=== PATIENT | female | born 1955 | race Caucasian/White ===

== ENCOUNTER 2022-07-06 15:44 | Emergency (ER) | payer MEDICARE, SELFPAY ==
--- NOTE | ~2022-07-06 | CT_ITS ---
EXAMINATION: CT CERVICAL SPINE WITHOUT CONTRAST CLINICAL INFORMATION: Neck pain status post fall. COMPARISON: None available. TECHNIQUE: Multiple axial images of the cervical spine were obtained without the images of intravenous contrast. Coronal and sagittal reformatted images were obtained. This CT examination was performed using dose optimization techniques as appropriate, variously including the following: *Automated exposure control *Adjustment of mA and/or kV according to patient size (this includes techniques or standardized protocols for targeted exams where dose is matched to indication/reason for exam; i.e. extremities or head) *Use of iterative reconstruction technique DLP: 300.01 mGy-cm FINDINGS: There is normal cervical lordosis with normal spinal alignment. Moderate to severe degenerative disc disease is seen from C4-5 and C5-6 with disc space narrowing, sclerosis and adjacent endplates, marginal osteophyte formation and minimal bilateral neural foraminal narrowing. The odontoid process is intact. The facet joints are unremarkable. The spinous processes are intact. The cervical soft tissues are unremarkable. There is no lymphadenopathy. The thyroid gland is unremarkable. The visualized lung apices are unremarkable. CT/CT cervical spine wo IV con IMPRESSION: Multilevel degenerative changes without acute abnormality.
--- NOTE | ~2022-07-06 | CT_ITS ---
EXAMINATION: CT ANGIOGRAM OF THE CHEST WITH AND WITHOUT CONTRAST (CT PULMONARY ANGIOGRAM FOR PE) CT ABDOMEN AND PELVIS WITH CONTRAST CLINICAL INFORMATION: Reason for Exam fall, chest trauma, sob, palpitations COMPARISON: None TECHNIQUE: Prior to contrast administration, noncontrast localization images were obtained. Subsequently, multidetector volumetric imaging was performed from the thoracic inlet to the pubic symphysis following the administration of 85 mL Omnipaque 350 intravenous contrast. This was followed by multidetector acquisition of the abdomen and pelvis. No contrast reaction reported Sagittal, coronal, and MIP oblique sagittal reformatted images were obtained on the CT workstation, uploaded to PACS, and reviewed. This CT examination was performed using dose optimization techniques as appropriate, variously including the following: *Automated exposure control *Adjustment of mA and/or kV according to patient size (this includes techniques or standardized protocols for targeted exams where dose is matched to indication/reason for exam; i.e. extremities or head) *Use of iterative reconstruction technique Total exam dose-length product 620 mGy-cm FINDINGS: QUALITY OF STUDY/CONTRAST BOLUS: Satisfactory. PULMONARY ARTERIES: No central or segmental pulmonary emboli. THORACIC AORTA: No aneurysm or dissection. LUNG: No focal consolidation, nodules or masses. Mild bronchial wall thickening present. PLEURA: No pleural effusion or pneumothorax. MEDIASTINUM: Normal heart size. No pericardial effusion. No hilar or mediastinal lymphadenopathy. No evidence of septal bowing or right heart strain. CHEST WALL/AXILLA: No axillary or internal mammary lymphadenopathy. LIVER, GALLBLADDER, AND BILIARY TREE: The liver is normal in size, shape, and attenuation. No focal hepatic lesion or biliary ductal dilatation is present. The gallbladder is unremarkable with no evidence of radiopaque gallstones, gallbladder wall thickening, or obvious pericholecystic inflammatory changes. PANCREAS: Unremarkable. SPLEEN: Unremarkable. ADRENAL GLANDS: Unremarkable. KIDNEYS AND URETERS: The kidneys are normal in size, shape, and attenuation. No hydronephrosis, hydroureter, or calculi seen. No perinephric stranding. Simple bilateral renal cysts. No specific follow-up recommended. BLADDER: Unremarkable. GASTROINTESTINAL TRACT: The stomach is unremarkable. Normal caliber small bowel. No obstruction. Colonic diverticulosis at the sigmoid colon. No diverticulitis. No free air or free fluid. Appendix not seen.. ABDOMINAL WALL: No significant hernia is appreciated. LYMPH NODES: Normal. VASCULAR: Normal caliber aorta with mild atherosclerotic calcification. PELVIC VISCERA: The uterus and adnexa are unremarkable. OSSEOUS STRUCTURES: There is a mild anterior compression deformity of the L2 vertebral body. 10% loss of anterior vertebral body height with fragmented appearance of the anterior superior endplate. Intact ribs. Intact sternum. Intact pelvis. CT/CT abdomen pelvis w IV con IMPRESSION: 1. No pulmonary embolism. 2. No acute traumatic finding of the chest, abdomen, or pelvis. 3. Mild anterior compression deformity of the L2 vertebral body. This may be acute. VTE: negative
--- NOTE | ~2022-07-06 | CT_ITS ---
EXAMINATION: CT HEAD WITHOUT CONTRAST CLINICAL INFORMATION: Status post fall with head strike. COMPARISON: None available. TECHNIQUE: Contiguous axial imaging was performed from the skull base to vertex without intravenous administration of contrast. Coronal and sagittal reformatted images were obtained. This CT examination was performed using dose optimization techniques as appropriate, variously including the following: *Automated exposure control *Adjustment of mA and/or kV according to patient size (this includes techniques or standardized protocols for targeted exams where dose is matched to indication/reason for exam; i.e. extremities or head) *Use of iterative reconstruction technique DLP: 964 mGy-cm FINDINGS: The cortical sulci are normal. The lateral ventricles are symmetrical. The third and fourth ventricles are in their normal midline position. The basilar and prepontine cisterns are unremarkable. There is no acute intra or extracerebral abnormality. There is no mass effect or midline shift. Sections through the bony calvarium are unremarkable. The paranasal sinuses are clear. The bony orbits and orbital contents are unremarkable. CT/CT head/brain wo IV con IMPRESSION: No acute intracranial pathology.
--- NOTE | 2022-07-06 15:53 | ED.CHESTPAIN ---
HPI - Chest Pain General Chief Complaint: General Medical <ISIAH Vela - Last Filed: 07/06/22 16:00> Stated Complaint: chest palpitations <ISIAH Vela Last Filed: 07/06/22 16:00> Time Seen by Provider: 07/06/22 21:31 <ISIAH Vela Last Filed: 07/06/22 16:00> Source: patient <ISIAH Mack Last Filed: 07/06/22 23:52> Limitations: no limitations <ISIAH Mack Last Filed: 07/06/22 23:52> History of Present Illness HPI narrative: 67 year old female with no significant PMH presents to the ED with CC of palpitations with associated painful facial flushing that started a few weeks ago. Patient reports palpitations have awoken her from sleep on several occasions, and painful facial flushing typically precedes these episodes. Episodes typically last several minutes and resolve. Additionally, patient reports she fell down the stairs of her porch this morning, striking her head on the concrete with no LOC. Patient endorses pain all over, but specifically at the back of the head, lower back and right flank. Patient reports pain from fall does not radiate and she is generally sore all over. Patient denies fever, chills, N/V/D, dizziness, AMADOR, SOB, CP, urinary/bowel incontinence or retention, saddle paresthesias or weakness. No history of cardiac conditions or clotting disorders. Patient is not on a blood thinner. <ISIAH Mack Last Filed: 07/06/22 23:52> Related Data Home Medications: Previous Rx's Medication Instructions Recorded ketorolac 10 mg tablet 10 mg PO TID PRN pain 5 days #15 07/06/22 tabs lidocaine 5 % topical patch 1 patch topical DAILY PRN pain #15 07/06/22 ea morphine 15 mg immediate release 15 mg PO Q6H PRN pain 5 days #10 07/06/22 tablet tabs <ISIAH Vela Last Filed: 07/06/22 16:00> Allergies/Adverse Reactions: Allergies Allergy/AdvReac Type Severity Reaction Status Date / Time No Known Allergies Allergy Verified 07/06/22 15:54 <ISIAH Vela Last Filed: 07/06/22 16:00> Review of Systems Review of Systems: Constitutional : No Weight loss, No Fever, No Chills, No Fatigue, No Malaise ENT/Mouth : No sore throat, No Rhinorrhea Eyes: No Eye Pain, No Swelling, No Redness Cardiovascular : No Chest Pain, No SOB, No Dyspnea on Exertion, No Orthopnea, No Edema, + Palpitations Respiratory : No Cough, No Sputum, No Wheezing Gastrointestinal : No Nausea, No Vomiting, No Diarrhea, No Constipation, No abdominal Pain, No Hematochezia, No Melena Genitourinary : No Dysuria, No Urinary Frequency, No Hematuria, Musculoskeletal : + joint pain, No Myalgias, No Joint Swelling Skin : No Skin Lesions, No rash Neuro : No Weakness, No Numbness, No Dizziness, No Headache Psych : No Anxiety/Panic, No Depression All other systems reviewed and are negative <ISIAH Mack Last Filed: 07/06/22 23:52> Yes all other systems are reviewed and are negative <ISIAH Mack - Last Filed: 07/06/22 23:52> [facility] Past Medical History Attestation statement: The following information was validated with the patient. <ISIAH Mack - Last Filed: 07/06/22 23:52> Source: old records reviewed and nursing notes reviewed <ISIAH Mack - Last Filed: 07/06/22 23:52> Social History Social History: Social History Advance Directives: No Advance Directives Information Provided: No <ISIAH Vela Last Filed: 07/06/22 16:00> Physical Exam Vital Signs: Vital Signs: Last Vital Signs Temp 98.3 F 07/06/22 21:17 Pulse 67 07/06/22 21:17 Resp 14 07/06/22 21:17 BP 139/76 07/06/22 21:17 Pulse Ox 96 07/06/22 21:17 O2 Del Method Room Air 07/06/22 21:17 BMI result Body Mass Index 26.2 <ISIAH Vela Last Filed: 07/06/22 16:00> Vital Signs: Last Vital Signs Temp 98.3 F 07/06/22 21:17 Pulse 67 07/06/22 21:17 Resp 14 07/06/22 21:17 BP 139/76 07/06/22 21:17 Pulse Ox 96 07/06/22 21:17 O2 Del Method Room Air 07/06/22 21:17 BMI result Body Mass Index 26.2 vss <ISIAH Mack - Last Filed: 07/06/22 23:52> Appearance: Alert.? Oriented X3.? No acute distress.? Head: Normocephalic, atraumatic, no step-offs or deformities Eyes: Pupils equal, round and reactive to light.? ENT: Pharynx normal.? Neck: Normal inspection.? Neck supple.? CVS: Normal heart rate and rhythm.? Pulses normal.? Respiratory: No respiratory distress.? Breath sounds normal.? Abdomen: Soft and nontender.? Skin: Skin warm and dry.? Normal skin color.? Normal skin turgor.? Extremities: No lower extremity edema.? No calf ttp. 5/5 strength to bilateral upper and lower extremities Back: No midline tenderness, no C-spine tenderness, full range of motion, no CVA tenderness bilaterally patient reports right-sided lumbar paraspinous tenderness throughout with pain to right buttocks/hip. Full range of motion however Neuro: Oriented X 3.? No motor deficit.? No sensory deficit. CN 2-12 intact . No saddle paresthesias. Ambulatory with steady gait. <ISIAH Mack - Last Filed: 07/06/22 23:52> Course Course Course Narrative: RME: 67yo F w/PMHx HLD, GERD, Glaucoma, c/o intermittent palpitations, elevated HR, & flushing feeling since Tuesday. Admits fell down 7 stairs this AM w/+head strike on pavement after chasing a squirrel away from bird feeder around 7AM, denies LOC. Denies taking AC EKG, Labs, UA, CT head/neck ordered Full HPI, ROS and PE to be performed by primary ED provider. <ISIAH Vela Last Filed: 07/06/22 16:00> Reevaluation(s) Reevaluation #1: Patient's white blood cell count elevated 13.9 likely secondary to acute fall/reactivity. I do not suspect infection. Chemistry with no acute electrolyte abnormalities requiring intervention. Patient's troponin negative x2, EKG nonischemic, heart score 3 Low score Risk of MACE of 0.9-1.7%. UA w/o infection. Coags normal. D-dimer was elevated therefore CTA was ordered. CT without pulmonary embolism. No acute traumatic findings chest, abdomen or pelvis. Mild anterior compression deformity of L2 vertebral body, this could be acute. Nothing to be done about this, there is no focal neuro deficits suggesting cord compression or cauda equina. Head CT with no acute intracranial pathology. CT of the cervical spine with multilevel degenerative changes without acute abnormality. I did discuss this case with my attending who recommends cardiology follow-up due to palpitations and facial flushing. Patient will be given information for cardiology consult. Patient will be discharged home with morphine, Toradol. Advised to return with new or worsening symptoms. Educated patient on diagnosis and treatment plan, answered all question, patient verbalizes understanding. At this time patient will be discharged home, advised to return with new or worsening symptoms. Educated on worrisome signs and symptoms and when to return. At this time I feel comfortable discharge home. <ISIAH Mack - Last Filed: 07/06/22 23:52> Time: 23:34 <ISIAH Mack - Last Filed: 07/06/22 23:52> Reevaluation #2: Patient tells me she is feeling much better at time of discharge. <ISIAH Mack - Last Filed: 07/06/22 23:52> Time: 23:52 <ISIAH Mack - Last Filed: 07/06/22 23:52> Medications Administered Discontinued Medications Generic Name Dose Route Start Last Admin Trade Name Freq PRN Reason Stop Dose Admin Iohexol 100 ml 07/06/22 22:29 07/06/22 22:29 Iohexol 350 Mg/Ml 100 Ml Infus..Btl IV 07/06/22 22:30 85 ml ONCE ONE Administration Ketorolac Tromethamine 30 mg 07/06/22 22:54 07/06/22 23:00 Ketorolac Tromethamine 15 Mg/Ml Vial IVPUSH 07/06/22 22:55 30 mg ONCE ONE Administration Lidocaine 2 patch 07/06/22 22:54 07/06/22 23:00 Lidocaine 4 % Patch Adh..Patch TRANSDERMA 07/06/22 22:55 2 patch ONCE ONE Administration Protocol <ISIAH Vela - Last Filed: 07/06/22 16:00> Medications Administered Discontinued Medications Generic Name Dose Route Start Last Admin Trade Name Mikel PRN Reason Stop Dose Admin Iohexol 100 ml 07/06/22 22:29 07/06/22 22:29 Iohexol 350 Mg/Ml 100 Ml Infus..Btl IV 07/06/22 22:30 85 ml ONCE ONE Administration Ketorolac Tromethamine 30 mg 07/06/22 22:54 07/06/22 23:00 Ketorolac Tromethamine 15 Mg/Ml Vial IVPUSH 07/06/22 22:55 30 mg ONCE ONE Administration Lidocaine 2 patch 07/06/22 22:54 07/06/22 23:00 Lidocaine 4 % Patch Adh..Patch TRANSDERMA 07/06/22 22:55 2 patch ONCE ONE Administration Protocol <ISIAH Mack - Last Filed: 07/06/22 23:52> Medical Decision Making Medical Decision Making MDM Narrative: 67-year-old female presents with facial flushing, palpitations x2 weeks right-sided hip/back pain, pain all over status post fall earlier today. Not on blood thinners. No loss of consciousness. Physical exam significant for back with No midline tenderness, no C-spine tenderness, full range of motion, no CVA tenderness bilaterally patient reports right-sided lumbar paraspinous tenderness throughout with pain to right buttocks/hip. Full range of motion however. Normal chest, lung exam. Abdomen soft nontender nondistended neuro nonfocal. Cerebellar intact. GCS 15. NIH stroke scale 0. I do not suspect intracranial hemorrhage, stroke or posterior stroke. Likely concussion without loss consciousness/closed head injury. Patient has right hip pain/back pain likely contusion or lumbar paraspinous spasms. Will rule out fractures and dislocations History and physical exam not consistent with cauda equina or epidural abscess. Patient's palpitations likely secondary to anxiety, I do not suspect PE, ACS on this patient. Facial flushing could be secondary to something autoimmune related such as lupus, pheochromocytoma although unlikely due to patient's normal pressures, unlikely that this is carcinoid tumor or dumping syndrome. Plan labs, imaging, troponin, EKG <ISIAH Mack - Last Filed: 07/06/22 23:52> Differential Diagnosis Differential Diagnoses: The differential diagnosis associated with the presentation includes <ISIAH Mack - Last Filed: 07/06/22 23:52> I do not suspect intracranial hemorrhage, stroke or posterior stroke. Likely concussion without loss consciousness/closed head injury. Patient has right hip pain/back pain likely contusion or lumbar paraspinous spasms. Will rule out fractures and dislocations History and physical exam not consistent with cauda equina or epidural abscess. Patient's palpitations likely secondary to anxiety, I do not suspect PE, ACS on this patient. Facial flushing could be secondary to something autoimmune related such as lupus, pheochromocytoma although unlikely due to patient's normal pressures, unlikely that this is carcinoid tumor or dumping syndrome. <ISIAH Mack - Last Filed: 07/06/22 23:52> Admission/Observation Consideration of admission/observation: Escalation of care including admission/observation considered <ISIAH Mack - Last Filed: 07/06/22 23:52> Lab Data MDM Lab Attestation statement: I reviewed the patient's lab results. <ISIAH Mack - Last Filed: 07/06/22 23:52> Result Diagrams: 07/06/22 16:13 07/06/22 16:13 <ISIAH Vela - Last Filed: 07/06/22 16:00> Labs: Lab Results 07/06/22 07/06/22 07/06/22 Range/Units 16:13 16:13 16:13 WBC 13.9 H (4.8-10.8) X10*3/uL RBC 5.01 (4.20-5.50) X10*6/uL Hgb 14.9 (12.0-16.0) g/dl Hct 43.9 (37.0-47.0) % MCV 87.6 (80.0-98.0) fL MCH 29.7 (27.0-33.0) pg MCHC 33.9 (31.0-35.0) g/dl RDW 12.6 (11.0-16.0) % Plt Count 341 (160-400) X10*3/uL MPV 8.5 L (9.4-12.3) fL Immature Gran % (Auto) 0.4 (0.0-0.4) % Neut % (Auto) 73.0 (45-73) % Lymph % (Auto) 18.4 L (20-40) % [place] % (Auto) 7.5 (2-11) % Eos % (Auto) 0.5 (0-4) % Baso % (Auto) 0.2 (0-2) % Lymph # (Auto) 2.6 (1.2-4.9) X10*3/uL [place] # (Auto) 1.1 (0.1-1.2) X10*3/uL Eos # (Auto) 0.1 (0.0-0.4) X10*3/uL Baso # (Auto) 0.0 (0.0-0.2) X10*3/uL Abs Immat Gran (auto) 0.06 H (0.00-0.03) X10*3/uL Absolute Neuts (auto) 10.2 H (2.0-8.3) x10*3/uL Absolute Nucleated RBC 0.000 (0.0-0.012) X10*3/uL Nucleated RBC % (auto) 0.0 (0.0-0.2) /100WBC PT 11.6 (10.0-13.1) SEC INR 1.0 (0.9-1.1) D-Dimer High Sensitivty 471 NG/ML Sodium 133 L (135-145) mmol/L Potassium 4.4 (3.3-5.1) mmol/L Chloride 100 (96-108) mmol/L Carbon Dioxide 24 (22-29) mmol/L Anion Gap 13 (12-20) BUN 13 (9-16) mg/dL Creatinine 0.85 (0.5-1.4) mg/dL Estim Creat Clear Calc 53.0 Estimated GFR > 60 Random Glucose 116 H (60-115) mg/dL Calcium 9.2 (8.4-10.2) mg/dL Magnesium 2.0 (1.6-2.6) mg/dL Total Bilirubin 1.1 H (0.0-1.0) mg/dL Direct Bilirubin 0.2 (0.0-0.5) mg/dL AST 21 (5-31) U/L ALT 22 (0-31) U/L Alkaline Phosphatase 76 (39-117) U/L Troponin I High Sens (<3.5-17.0) ng/L C-Reactive Protein 0.21 (< or = 0.50) mg/dL Total Protein 7.5 (6.5-8.0) g/dL Albumin 4.4 (3.5-5.0) g/dL TSH (0.32-4.0) uIU/mL Urine Color Urine Appearance Urine pH (5.0-9.0) Ur Specific [place] (1.005-1.025) Urine Protein (Neg-Trace) mg/dL Urine Glucose (UA) (Negative) mg/dL Urine Ketones (Negative) mg/dL Urine Blood (Negative) Urine Nitrite (Negative) Ur Leukocyte Esterase (Negative) 07/06/22 07/06/22 07/06/22 Range/Units 16:13 16:13 16:28 WBC (4.8-10.8) X10*3/uL RBC (4.20-5.50) X10*6/uL Hgb (12.0-16.0) g/dl Hct (37.0-47.0) % MCV (80.0-98.0) fL MCH (27.0-33.0) pg MCHC (31.0-35.0) g/dl RDW (11.0-16.0) % Plt Count (160-400) X10*3/uL MPV (9.4-12.3) fL Immature Gran % (Auto) (0.0-0.4) % Neut % (Auto) (45-73) % Lymph % (Auto) (20-40) % [place] % (Auto) (2-11) % Eos % (Auto) (0-4) % Baso % (Auto) (0-2) % Lymph # (Auto) (1.2-4.9) X10*3/uL [place] # (Auto) (0.1-1.2) X10*3/uL Eos # (Auto) (0.0-0.4) X10*3/uL Baso # (Auto) (0.0-0.2) X10*3/uL Abs Immat Gran (auto) (0.00-0.03) X10*3/uL Absolute Neuts (auto) (2.0-8.3) x10*3/uL Absolute Nucleated RBC (0.0-0.012) X10*3/uL Nucleated RBC % (auto) (0.0-0.2) /100WBC PT (10.0-13.1) SEC INR (0.9-1.1) D-Dimer High Sensitivty NG/ML Sodium (135-145) mmol/L Potassium (3.3-5.1) mmol/L Chloride (96-108) mmol/L Carbon Dioxide (22-29) mmol/L Anion Gap (12-20) BUN (9-16) mg/dL Creatinine (0.5-1.4) mg/dL Estim Creat Clear Calc Estimated GFR Random Glucose (60-115) mg/dL Calcium (8.4-10.2) mg/dL Magnesium (1.6-2.6) mg/dL Total Bilirubin (0.0-1.0) mg/dL Direct Bilirubin (0.0-0.5) mg/dL AST (5-31) U/L ALT (0-31) U/L Alkaline Phosphatase (39-117) U/L Troponin I High Sens < 2.7 (<3.5-17.0) ng/L C-Reactive Protein (< or = 0.50) mg/dL Total Protein (6.5-8.0) g/dL Albumin (3.5-5.0) g/dL TSH 2.30 (0.32-4.0) uIU/mL Urine Color Yellow Urine Appearance Clear Urine pH 7.0 (5.0-9.0) Ur Specific [place] <= 1.005 (1.005-1.025) Urine Protein Negative (Neg-Trace) mg/dL Urine Glucose (UA) Negative (Negative) mg/dL Urine Ketones Negative (Negative) mg/dL Urine Blood Negative (Negative) Urine Nitrite Negative (Negative) Ur Leukocyte Esterase Negative (Negative) 07/06/22 Range/Units 21:55 WBC (4.8-10.8) X10*3/uL RBC (4.20-5.50) X10*6/uL Hgb (12.0-16.0) g/dl Hct (37.0-47.0) % MCV (80.0-98.0) fL MCH (27.0-33.0) pg MCHC (31.0-35.0) g/dl RDW (11.0-16.0) % Plt Count (160-400) X10*3/uL MPV (9.4-12.3) fL Immature Gran % (Auto) (0.0-0.4) % Neut % (Auto) (45-73) % Lymph % (Auto) (20-40) % [place] % (Auto) (2-11) % Eos % (Auto) (0-4) % Baso % (Auto) (0-2) % Lymph # (Auto) (1.2-4.9) X10*3/uL [place] # (Auto) (0.1-1.2) X10*3/uL Eos # (Auto) (0.0-0.4) X10*3/uL Baso # (Auto) (0.0-0.2) X10*3/uL Abs Immat Gran (auto) (0.00-0.03) X10*3/uL Absolute Neuts (auto) (2.0-8.3) x10*3/uL Absolute Nucleated RBC (0.0-0.012) X10*3/uL Nucleated RBC % (auto) (0.0-0.2) /100WBC PT (10.0-13.1) SEC INR (0.9-1.1) D-Dimer High Sensitivty NG/ML Sodium (135-145) mmol/L Potassium (3.3-5.1) mmol/L Chloride (96-108) mmol/L Carbon Dioxide (22-29) mmol/L Anion Gap (12-20) BUN (9-16) mg/dL Creatinine (0.5-1.4) mg/dL Estim Creat Clear Calc Estimated GFR Random Glucose (60-115) mg/dL Calcium (8.4-10.2) mg/dL Magnesium (1.6-2.6) mg/dL Total Bilirubin (0.0-1.0) mg/dL Direct Bilirubin (0.0-0.5) mg/dL AST (5-31) U/L ALT (0-31) U/L Alkaline Phosphatase (39-117) U/L Troponin I High Sens < 2.7 (<3.5-17.0) ng/L C-Reactive Protein (< or = 0.50) mg/dL Total Protein (6.5-8.0) g/dL Albumin (3.5-5.0) g/dL TSH (0.32-4.0) uIU/mL Urine Color Urine Appearance Urine pH (5.0-9.0) Ur Specific [place] (1.005-1.025) Urine Protein (Neg-Trace) mg/dL Urine Glucose (UA) (Negative) mg/dL Urine Ketones (Negative) mg/dL Urine Blood (Negative) Urine Nitrite (Negative) Ur Leukocyte Esterase (Negative) <ISIAH Vela - Last Filed: 07/06/22 16:00> Lab Results 07/06/22 07/06/22 07/06/22 Range/Units 16:13 16:13 16:13 WBC 13.9 H (4.8-10.8) X10*3/uL RBC 5.01 (4.20-5.50) X10*6/uL Hgb 14.9 (12.0-16.0) g/dl Hct 43.9 (37.0-47.0) % MCV 87.6 (80.0-98.0) fL MCH 29.7 (27.0-33.0) pg MCHC 33.9 (31.0-35.0) g/dl RDW 12.6 (11.0-16.0) % Plt Count 341 (160-400) X10*3/uL MPV 8.5 L (9.4-12.3) fL Immature Gran % (Auto) 0.4 (0.0-0.4) % Neut % (Auto) 73.0 (45-73) % Lymph % (Auto) 18.4 L (20-40) % [place] % (Auto) 7.5 (2-11) % Eos % (Auto) 0.5 (0-4) % Baso % (Auto) 0.2 (0-2) % Lymph # (Auto) 2.6 (1.2-4.9) X10*3/uL [place] # (Auto) 1.1 (0.1-1.2) X10*3/uL Eos # (Auto) 0.1 (0.0-0.4) X10*3/uL Baso # (Auto) 0.0 (0.0-0.2) X10*3/uL Abs Immat Gran (auto) 0.06 H (0.00-0.03) X10*3/uL Absolute Neuts (auto) 10.2 H (2.0-8.3) x10*3/uL Absolute Nucleated RBC 0.000 (0.0-0.012) X10*3/uL Nucleated RBC % (auto) 0.0 (0.0-0.2) /100WBC PT 11.6 (10.0-13.1) SEC INR 1.0 (0.9-1.1) D-Dimer High Sensitivty 471 NG/ML Sodium 133 L (135-145) mmol/L Potassium 4.4 (3.3-5.1) mmol/L Chloride 100 (96-108) mmol/L Carbon Dioxide 24 (22-29) mmol/L Anion Gap 13 (12-20) BUN 13 (9-16) mg/dL Creatinine 0.85 (0.5-1.4) mg/dL Estim Creat Clear Calc 53.0 Estimated GFR > 60 Random Glucose 116 H (60-115) mg/dL Calcium 9.2 (8.4-10.2) mg/dL Magnesium 2.0 (1.6-2.6) mg/dL Total Bilirubin 1.1 H (0.0-1.0) mg/dL Direct Bilirubin 0.2 (0.0-0.5) mg/dL AST 21 (5-31) U/L ALT 22 (0-31) U/L Alkaline Phosphatase 76 (39-117) U/L Troponin I High Sens (<3.5-17.0) ng/L C-Reactive Protein 0.21 (< or = 0.50) mg/dL Total Protein 7.5 (6.5-8.0) g/dL Albumin 4.4 (3.5-5.0) g/dL TSH (0.32-4.0) uIU/mL Urine Color Urine Appearance Urine pH (5.0-9.0) Ur Specific [place] (1.005-1.025) Urine Protein (Neg-Trace) mg/dL Urine Glucose (UA) (Negative) mg/dL Urine Ketones (Negative) mg/dL Urine Blood (Negative) Urine Nitrite (Negative) Ur Leukocyte Esterase (Negative) 07/06/22 07/06/22 07/06/22 Range/Units 16:13 16:13 16:28 WBC (4.8-10.8) X10*3/uL RBC (4.20-5.50) X10*6/uL Hgb (12.0-16.0) g/dl Hct (37.0-47.0) % MCV (80.0-98.0) fL MCH (27.0-33.0) pg MCHC (31.0-35.0) g/dl RDW (11.0-16.0) % Plt Count (160-400) X10*3/uL MPV (9.4-12.3) fL Immature Gran % (Auto) (0.0-0.4) % Neut % (Auto) (45-73) % Lymph % (Auto) (20-40) % [place] % (Auto) (2-11) % Eos % (Auto) (0-4) % Baso % (Auto) (0-2) % Lymph # (Auto) (1.2-4.9) X10*3/uL [place] # (Auto) (0.1-1.2) X10*3/uL Eos # (Auto) (0.0-0.4) X10*3/uL Baso # (Auto) (0.0-0.2) X10*3/uL Abs Immat Gran (auto) (0.00-0.03) X10*3/uL Absolute Neuts (auto) (2.0-8.3) x10*3/uL Absolute Nucleated RBC (0.0-0.012) X10*3/uL Nucleated RBC % (auto) (0.0-0.2) /100WBC PT (10.0-13.1) SEC INR (0.9-1.1) D-Dimer High Sensitivty NG/ML Sodium (135-145) mmol/L Potassium (3.3-5.1) mmol/L Chloride (96-108) mmol/L Carbon Dioxide (22-29) mmol/L Anion Gap (12-20) BUN (9-16) mg/dL Creatinine (0.5-1.4) mg/dL Estim Creat Clear Calc Estimated GFR Random Glucose (60-115) mg/dL Calcium (8.4-10.2) mg/dL Magnesium (1.6-2.6) mg/dL Total Bilirubin (0.0-1.0) mg/dL Direct Bilirubin (0.0-0.5) mg/dL AST (5-31) U/L ALT (0-31) U/L Alkaline Phosphatase (39-117) U/L Troponin I High Sens < 2.7 (<3.5-17.0) ng/L C-Reactive Protein (< or = 0.50) mg/dL Total Protein (6.5-8.0) g/dL Albumin (3.5-5.0) g/dL TSH 2.30 (0.32-4.0) uIU/mL Urine Color Yellow Urine Appearance Clear Urine pH 7.0 (5.0-9.0) Ur Specific [place] <= 1.005 (1.005-1.025) Urine Protein Negative (Neg-Trace) mg/dL Urine Glucose (UA) Negative (Negative) mg/dL Urine Ketones Negative (Negative) mg/dL Urine Blood Negative (Negative) Urine Nitrite Negative (Negative) Ur Leukocyte Esterase Negative (Negative) 07/06/22 Range/Units 21:55 WBC (4.8-10.8) X10*3/uL RBC (4.20-5.50) X10*6/uL Hgb (12.0-16.0) g/dl Hct (37.0-47.0) % MCV (80.0-98.0) fL MCH (27.0-33.0) pg MCHC (31.0-35.0) g/dl RDW (11.0-16.0) % Plt Count (160-400) X10*3/uL MPV (9.4-12.3) fL Immature Gran % (Auto) (0.0-0.4) % Neut % (Auto) (45-73) % Lymph % (Auto) (20-40) % [place] % (Auto) (2-11) % Eos % (Auto) (0-4) % Baso % (Auto) (0-2) % Lymph # (Auto) (1.2-4.9) X10*3/uL [place] # (Auto) (0.1-1.2) X10*3/uL Eos # (Auto) (0.0-0.4) X10*3/uL Baso # (Auto) (0.0-0.2) X10*3/uL Abs Immat Gran (auto) (0.00-0.03) X10*3/uL Absolute Neuts (auto) (2.0-8.3) x10*3/uL Absolute Nucleated RBC (0.0-0.012) X10*3/uL Nucleated RBC % (auto) (0.0-0.2) /100WBC PT (10.0-13.1) SEC INR (0.9-1.1) D-Dimer High Sensitivty NG/ML Sodium (135-145) mmol/L Potassium (3.3-5.1) mmol/L Chloride (96-108) mmol/L Carbon Dioxide (22-29) mmol/L Anion Gap (12-20) BUN (9-16) mg/dL Creatinine (0.5-1.4) mg/dL Estim Creat Clear Calc Estimated GFR Random Glucose (60-115) mg/dL Calcium (8.4-10.2) mg/dL Magnesium (1.6-2.6) mg/dL Total Bilirubin (0.0-1.0) mg/dL Direct Bilirubin (0.0-0.5) mg/dL AST (5-31) U/L ALT (0-31) U/L Alkaline Phosphatase (39-117) U/L Troponin I High Sens < 2.7 (<3.5-17.0) ng/L C-Reactive Protein (< or = 0.50) mg/dL Total Protein (6.5-8.0) g/dL Albumin (3.5-5.0) g/dL TSH (0.32-4.0) uIU/mL Urine Color Urine Appearance Urine pH (5.0-9.0) Ur Specific [place] (1.005-1.025) Urine Protein (Neg-Trace) mg/dL Urine Glucose (UA) (Negative) mg/dL Urine Ketones (Negative) mg/dL Urine Blood (Negative) Urine Nitrite (Negative) Ur Leukocyte Esterase (Negative) <ISIAH Mack - Last Filed: 07/06/22 23:52> Independent Interpretation I performed an independent interpretation of an: EKG (Ventricular rate of 64, FL normal, QRS normal, QT/QTC normal. EKG with normal sinus rhythm no ST elevations or inversions concerning for ischemia) and CT Scan ( CT/CT angio chest PE protocol IMPRESSION: 1. No pulmonary embolism. 2. No acute traumatic finding of the chest, abdomen, or pelvis. 3. Mild anterior compression deformity of the L2 vertebral body. This may be acute. VTE: negative) <ISIAH Mack - Last Filed: 07/06/22 23:52> Interpretation: CT/CT cervical spine wo IV con IMPRESSION: Multilevel degenerative changes without acute abnormality. CT/CT head/brain wo IV con IMPRESSION: No acute intracranial pathology. ? <ISIAH Mack - Last Filed: 07/06/22 23:52> Radiology Impression Discussion of test interpretation with radiology: I have reviewed the radiologist's reading. <ISIAH Mack - Last Filed: 07/06/22 23:52> External Record Review External record reviewed: Inpatient record, Office record, Outpatient record, Prior outpatient labs, Prior outpatient radiology, Primary care record and Outside ED record <ISIAH Mack - Last Filed: 07/06/22 23:52> Prescription Management I considered prescription management with: Pain Medication <ISIAH Mack - Last Filed: 07/06/22 23:52> Core Measures AMI core measures followed: Yes <ISIAH Mack - Last Filed: 07/06/22 23:52> Measure exclusions: not indicated <ISIAH Mack - Last Filed: 07/06/22 23:52> Critical Care Time Critical Care Time Critical Care Time: No <ISIAH Mack - Last Filed: 07/06/22 23:52> Discharge Plan Discharge Clinical Impression: Palpitations, Facial flushing, Fall, Acute hip pain, Compression deformity of vertebra <ISIAH Vela Last Filed: 07/06/22 16:00> Patient Disposition: Home, Self-Care <ISIAH Vela Last Filed: 07/06/22 16:00> Instructions: Heart Palpitations (ED), Acute Low Back Pain (ED), Fall Prevention (ED), Hip Pain (ED) <ISIAH Vela Last Filed: 07/06/22 16:00> Additional Instructions: Take your medications as prescribed. If you were prescribed antibiotics today, it is important that you take your medication to their entirety, do not skip any doses, do not finish them early. Follow-up with your primary care provider this week. Return to the emergency department with new or worsening symptoms. Such as fevers, chills, chest pain, shortness of breath, nausea, vomiting, dizziness, headache, vision changes, lethargy In case of emergency call 911 Toradol has been sent to your pharmacy, you tolerated this well in the department. Please take this as prescribed do not take this with ibuprofen, or other NSAIDs, do not mix this with alcohol. Side effects of this medication including increased risk for bleeding and possible kidney injury. A narcotic has been sent to your pharmacy please take this as prescribed. Do not take more than the prescribed dose. Narcotic medications can cause addiction. Please do not mix them with alcohol. Do not take them while driving or operating machinery. Do not take them with any other narcotics. Do not share them with friends or family. They can cause constipation. Take them only for severe pain. CT/CT abdomen pelvis, chest w IV con IMPRESSION: 1. No pulmonary embolism. 2. No acute traumatic finding of the chest, abdomen, or pelvis. 3. Mild anterior compression deformity of the L2 vertebral body. This may be acute. VTE: negative CT/CT head/brain wo IV con IMPRESSION: No acute intracranial pathology. CT/CT cervical spine wo IV con IMPRESSION: Multilevel degenerative changes without acute abnormality. <ISIAH Vela Last Filed: 07/06/22 16:00> Prescriptions: New ketorolac 10 mg tablet 10 mg PO TID PRN (Reason: pain) 5 Days Qty: 15 0RF lidocaine 5 % adhesive patch,medicated 1 patch topical DAILY PRN (Reason: pain) Qty: 15 0RF Rx Instructions: leave on most painful area for up to 12 hrs morphine 15 mg tablet 15 mg PO Q6H PRN (Reason: pain) 5 Days Qty: 10 0RF Rx Instructions: Partial Fill upon patient request. <ISIAH Vela - Last Filed: 07/06/22 16:00> Referrals: [facility] [Provider Group] - 1 day Omega Carrillo MD [Primary Care Provider] - 2 days <ISIAH Vela - Last Filed: 07/06/22 16:00> Stand Alone Forms: Work/School Release <ISIAH Vela - Last Filed: 07/06/22 16:00>
[2022-07-06 15:54] VITALS: BP 185/90; PULSE 67; RESP 17; TEMP 35.8; O2SAT 98; BMI 26.2
--- NOTE | 2022-07-06 15:54 | ECG_ITS ---
Test Reason : palpitations Blood Pressure : / mmHG Vent. Rate : 064 BPM Atrial Rate : 064 BPM P-R Int : 136 ms QRS Dur : 080 ms QT Int : 404 ms P-R-T Axes : 036 052 045 degrees QTc Int : 416 ms Normal sinus rhythm Normal ECG No previous ECGs available Referred By: Zara Cleaning Electronically Signed By:Joseph Quintero
[2022-07-06 16:17] LABS: MANUAL DIFF FLAG NO
[2022-07-06 16:20] LABS: Basophils Percent Auto 0.2 % (0-2); Eosinophils Absolute Auto 0.1 X10*3/uL (0.0-0.4); Eosinophils Percent Auto 0.5 % (0-4); Hematocrit 43.9 % (37.0-47.0); Hemoglobin 14.9 g/dl (12.0-16.0); Imm Gran Abs Auto 0.06 X10*3/uL (0.00-0.03); Imm Gran Pct Auto 0.4 % (0.0-0.4); Lymphocytes Absolute Auto 2.6 X10*3/uL (1.2-4.9); Lymphocytes Percent Auto 18.4 % (20-40); Mean Corpuscular HGB Conc 33.9 g/dl (31.0-35.0); Mean Corpuscular Hemoglobin 29.7 pg (27.0-33.0); Mean Corpuscular Volume 87.6 fL (80.0-98.0); Mean Platelet Volume 8.5 fL (9.4-12.3); Monocytes Absolute Auto 1.1 X10*3/uL (0.1-1.2); Monocytes Percent Auto 7.5 % (2-11); Neutrophils Absolute Auto 10.2 x10*3/uL (2.0-8.3); Platelet Count 341 X10*3/uL (160-400); Red Blood Count 5.01 X10*6/uL (4.20-5.50); Red Cell Distribution Width 12.6 % (11.0-16.0); White Blood Count 13.9 X10*3/uL (4.8-10.8)
[2022-07-06 16:27] LABS: Prothrombin Time 11.6 SEC (10.0-13.1)
[2022-07-06 16:38] LABS: Appearance Urine Clear; Color Urine Yellow; Glucose Urine UA Negative (Negative); Leukocyte Esterase Urine Negative (Negative); Nitrite Urine Negative (Negative); Specific Gravity - Urine <= 1.005 (1.005-1.025); Urine Blood Negative (Negative); Urine Ketones Negative (Negative); Urine Protein Negative (Neg-Trace)
[2022-07-06 16:39] LABS: Alanine Aminotransferase 22 U/L (0-31); Albumin Level 4.4 g/dL (3.5-5.0); Alkaline Phosphatase 76 U/L (39-117); Anion Gap 13 (12-20); Aspartate Amino Transferase 21 U/L (5-31); Bilirubin Direct 0.2 mg/dL (0.0-0.5); Bilirubin Total 1.1 mg/dL (0.0-1.0); Blood Urea Nitrogen 13 mg/dL (9-16); Calcium 9.2 mg/dL (8.4-10.2); Carbon Dioxide 24 mmol/L (22-29); Chloride 100 mmol/L (96-108); Estimated Glomerular Filt Rate > 60; Glucose Random 116 mg/dL (60-115); Potassium 4.4 mmol/L (3.3-5.1); Sodium 133 mmol/L (135-145); Total Protein 7.5 g/dL (6.5-8.0)
[2022-07-06 16:47] LABS: Troponin-I High Sensitivity < 2.7 ng/L (<3.5-17.0)
[2022-07-06 19:27] VITALS: BP 156/73; PULSE 66; RESP 18; TEMP 36.7; O2SAT 97
[2022-07-06 21:17] VITALS: BP 139/76; PULSE 67; RESP 14; TEMP 36.8; O2SAT 96
[2022-07-06 22:29] LABS: Troponin-I High Sensitivity < 2.7 ng/L (<3.5-17.0)
[2022-07-06] MEDS: iohexoL 350 MG/ML 100 ML INFUS..BTL IV (22:29)
[2022-07-06 22:32] LABS: D Dimer High Sensitivity 471 NG/ML
[2022-07-06 22:47] LABS: C Reactive Protein 0.21 mg/dL (< or = 0.50)
[2022-07-06] MEDS: Ketorolac Tromethamine 15 MG/ML VIAL 30 MG IVPUSH (23:00)
[2022-07-06] MEDS: Lidocaine 4 % Patch ADH..PATCH 2 PATCH TRANSDERMA (23:00)
== END 2022-07-07 00:07 | disposition home or self-care (01) ==
PROVIDERS: Physician Assistant; Emergency Provider Emergency Medicine Emergency Medical Services; PCP Internal Medicine
DX: R00.2 Palpitations (principal); R23.2 Flushing; G89.11 Acute pain due to trauma; M25.551 Pain in right hip; G95.29 Other cord compression; M50.31 Other cervical disc degeneration, high cervical region; M40.55 Lordosis, unspecified, thoracolumbar region
CPT/HCPCS: 36415; 70450; 71275; 72125; 74177; 80048; 80076; 81003; 83735; 84443; 84484; 85025; 85379; 85610; 86140; 93005; 96374; 99284; J1885; Q9967